=== PATIENT | male | born 1940 | race Caucasian/White ===

== ENCOUNTER 2025-05-10 18:26 | Inpatient (IN) | payer OTHER, SELFPAY ==
[2025-05-10] VITALS (8 sets, daily range): BP systolic 106–143; BP diastolic 67–94; BMI 24.7; BMI 21.7
[2025-05-10 14:48] LABS: Hematocrit 44.2 % (39.0-52.0); Hemoglobin 15.1 g/dL (13.0-18.0); Mean Corp Hgb Conc. 34.2 g/dL (33.0-37.0); Mean Corpuscular Volume 92.7 fL (80.0-94.0); Nucleated Red Blood Cells % 0 % (-); Platelet Count 218 10^3/uL (130-400); Red Cell Dist. Width 12.3 % (11.5-14.5)
[2025-05-10 15:11] LABS: AST (SGOT) 24 U/L (17-59); Albumin 4.2 g/dl (3.5-5.0); Alkaline Phosphatase 87 U/L (38-126); Blood Urea Nitrogen 13 mg/dl (9-20); Calcium 9.1 mg/dl (8.4-10.2); Carbon Dioxide 18 mmol/L (22-30); Chloride 111 mmol/L (98-107); Estimated Creatinine Clearance 59 ml/min; Glucose 139 mg/dl (70-99); Potassium 3.8 mmol/L (3.5-5.1); Sodium 141 mmol/L (135-145); Total Protein 7.0 g/dl (6.3-8.2); eGFR > 60.00
--- NOTE | 2025-05-10 15:18 | ED.GENMED ---
History of Present Illness
General
Chief Complaint: Seizure
Source: patient
Exam Limitations: none
Time Seen by Provider: 05/10/25 14:09
History of Present Illness
History of Present Illness:
84yoM with a history of atrial fibrillation, dementia, hypothyroidism presenting via EMS for evaluation after a possible seizure about 2 hours ago. Patient was in the car moving from his condo into his daughter's home. Patient suddenly started to
have generalized shaking and upper extremity flexion. His eyes reportedly rolled back and he was unconscious. He was also incontinent of urine. Episode lasted a few minutes before resolving. He was noted to be postictal on EMS arrival. He
continues to be agitated and seems much more confused than baseline per his daughters. No prior history of seizures in the past. He has been noncompliant with his medications and has not been eating much leading up to the move.
Phy Exam
General Physical Exam
General Presentation: no apparent distress
General Skin: warm and dry
General Habitus: normal and elderly
General Mental: alert
ENT Exam
ENT Exam: normocephalic
Eye Exam
Eye Exam: PERRL
Cardiovascular Exam
Cardiovascular Exam: regular rate/rhythm
Pulmonary Exam
Pulmonary Exam: lungs clear, no respiratory distress, no rales, no crackles, no rhonchi and no wheezing
Neurological Exam
Neurological Exam: alert and other (Answers yes/no to questions but not able to verbalize further. Intermittently follows commands. )
[place] Coma Scale
Eye Opening: Spontaneous
Verbal Response: Confused
Motor Response: Obeys Commands
GCS Total Score: 14
Skin Exam
Skin Exam: normal color and warm/dry
Psychiatric Exam
Psychiatric Exam: agitated
Course
Orders/Labs/Results
Orders:
Orders
05/10/25 14:38
EKG [Electrocardiogram (*1)] Urgent
Reason for Study: Other
Other Reason for Exam: seizure
EKG- Treatment ONCE
05/10/25 14:40
Complete Blood Count/With Diff Urgent
Comprehensive Metabolic Panel Urgent
Creatine Phosphokinase Urgent
Comment: ADD ON
NT-proBNP Urgent
05/10/25 15:16
CT Head W/o Iv Contrast Stat
Comment:
Reason For Exam: new onset seizure
Cardiac Monitoring- Treatment ONCE
0.9% Sodium Chloride 500 ml [Nss] 500 ml IV BOLUS
05/10/25 17:41
Urinalysis Reflex To Culture Urgent
Date Specimen was Collected: 05/10/25
Time Specimen was Collected: 17:40
Urine Microscopic Reflex Cult Urgent
05/10/25 18:17
Admit/Transfer Patient As Directed
Co-Sign Provider:
Level of Care: Inpatient admission
Assign to:: Telemetry
Physician / Group: meredith robles
Diagnosis: seizure
Reason for Telemetry: Arrhythmia
Date to Stop Telemetry: 05/13/25
Time to Stop Telemetry: 11:00
Reason for Hospitalization: seizure
Expected length of stay greater than two midnights?: Yes
ELOS- Estimated Length of Stay in days: 3
I certify the patient meets the requirements for IP care: Yes
PRN Pain Medication Management As Directed
May give lesser potent ordered pain med per pt: Yes
preference::
Protocol:: Medication orders for pain may be administered in a
manner that supports deferring to patient preference
when the pt is:
- Requesting an ordered lesser potent pain medication.
Least to most potent pain medications are defined
as: acetaminophen < NSAID < tramadol < opioids
(morphine, oxycodone, hydromorphone).
- Requesting a lesser dose of the same medication IF
ORDERED.
- Requesting a less intrusive route of administration
if both routes are prescribed by the provider (PO <
IV).
05/10/25 18:18
Code Status As Directed
Resuscitation Status: Full Code
05/10/25 18:20
NEUROLOGY CONSULT Routine
Consulting Provider: Everett Fregoso
Was physician already notified: Yes
05/13/25 11:00
DC Protocol for Telemetry ONCE
Abnormal Lab Results
05/10/25 05/10/25
14:40 17:41
MCH 31.7 H pg
(27.0-31.0)
Abs Immat Gran (auto) 0.4 H 10^3/uL
(0-0.05)
Absolute Monos (auto) 0.8 H 10^3/uL
(0.1-0.6)
Immature Gran % 4.2 H %
(0-0.5)
Chloride 111 H mmol/L
(98-107)
Carbon Dioxide 18 L mmol/L
(22-30)
Glucose 139 H mg/dl
(70-99)
Creatine Kinase 54 L U/L
(55-170)
Ur Occult Blood Reflex 2+ A
(Negative)
Urine RBC 3-6 A /HPF
(0-2)
05/10/25 14:40
05/10/25 14:40
Vital Signs
Initial and Last Documented VS:
Initial Vital Signs
BP
143/91
05/10/25 14:11
Last Documented Vital Signs
Temp Pulse Resp BP Pulse Ox
98.0 F 84 20 140/88 94
05/10/25 14:20 05/10/25 18:48 05/10/25 18:48 05/10/25 17:52 05/10/25 17:55
MDM/Problems Addressed
Differential Diagnosis Includes:
84yoM here after a possible seizure episode. Was unconscious with generalized shaking and urinary incontinence. No hx of seizures. HR 109 on arrival. He is agitated on exam and appears confused. He intermittently follows commands. Differential
diagnosis includes: seizure, convulsive syncope, toxic metabolic encephalopathy
Initial ED plan: Check CBC, CMP, EKG, UA, and CT head. IV fluid bolus.
*Pulse Oximetry
SaO2: 95
Oxygen Mode of Delivery: Room air
Patient hypoxic: no (95%)
*EKG
Interpreted by ED Provider?: Yes
EKG Intrepretation Date: 05/10/25
Heart Rate: 87
Rate: normal
Rhythm: a-fib
[place]: normal axis
Interval: normal interval
QRS Pattern: low voltage
Ischemia: no ischemia
*Critical Care Note
Total Time (30-74mins, 75-104mins- exclusive of procedures): Not Applicable
Update Note
Update Note:
Labs reveal a metabolic acidosis with a bicarb of 18 which is likely related to seizure episode. Remainder of labs unremarkable. CT head negative for acute findings. Patient admitted for further evaluation and management.
ED Attending Note
-
Portions of this chart may have been created with voice recognition software.� Occasional wrong word or��sound alike� substitutions may have occurred due to the inherent limitations of voice recognition software.
Discharge Plan
Departure
Patient Disposition: Admit
Date of Disposition: 05/10/25
Time of Disposition: 17:57
Presentation/result/management discussed w/ accepting MD/DO: Hospitalist
Discharge Problem:
Seizure-like activity, Altered mental status
Interventions
Interventions:
*Risk Screen - Suicide Last Done: 05/10/25 14:20
*General Assessment Last Done: 05/10/25 14:20
*Neglect/Abuse Screening Last Done: 05/10/25 14:20
*ED COVID-19 Vaccine History Last Done: 05/10/25 14:20
ED- Cardiac Assessment Last Done: 05/10/25 16:30
ED- Neurological Assessment Last Done: 05/10/25 16:30
ED- Pulmonary Assessment Last Done: 05/10/25 16:30
[2025-05-10 15:22] LABS: ALT (SGPT) < 10 U/L (0-50)
[2025-05-10] MEDS: NSS 500 IV (16:17)
--- NOTE | 2025-05-10 18:01 | HPS.HSE ---
Addendum entered and electronically signed by EDUARD Mercer 05/20/25 12:15:
Allergies
Allergy/AdvReac Type Severity Reaction Status Date / Time
No Known Allergies Allergy Verified 05/10/25 16:07
Home Medications
levothyroxine 50 mcg tablet 50 mcg PO DAILY 05/10/25
levetiracetam 500 mg tablet (Keppra) 500 mg PO BID #60 tabs 05/15/25
metoprolol tartrate 25 mg tablet 25 mg PO BID #60 tabs 05/15/25
Original Note:
Family Physician
-
Family Physician: EDUARD Yates
Chief Complaint
-
possible seizure
History of Present Illness
84yoM with a history of atrial fibrillation, dementia, hypothyroidism presenting via EMS for evaluation after a possible seizure about 2 hours ago. Patient was in the car moving from his condo into his daughter's home. Patient suddenly started to
have generalized shaking and upper extremity flexion. His eyes reportedly rolled back and he was unconscious. He was also incontinent of urine. Episode lasted a few minutes before resolving. He was noted to be postictal on EMS arrival. He
continues to be agitated and seems much more confused than baseline per his daughters. No prior history of seizures in the past. He has been noncompliant with his medications and has not been eating much leading up to the move. ROS limited as
patient confused and does not make sense.
admitting for further management.
Medical History
Past Medical History
Past Medical History: Reports Other
Additional Past Medical History:
Hypothyroidism
Hypertension
A-fib
Dyslipidemia
Right leg cellulitis
Bladder outlet obstruction
Varicella
Hemorrhoids
Gastritis
'Open-angle glaucoma
Diverticulosis
Dementia
Osteopenia
Past Surgical History: Reports None
Social History
Tobacco: Non-smoker
Alcohol: None
Drug: None
Personal: Single
Living: Alone
Family History
Family History: Not pertinent
Allergies / Home Medications
Allergies reflects when Allergies were last updated in [facility].
Home Medications with original date entered in [facility]
Allergy/Medication List:
Allergies
Allergy/AdvReac Type Severity Reaction Status Date / Time
No Known Allergies Allergy Verified 05/10/25 16:07
Review of Systems
-
Unable to obtain full review of systems at this time due to: Acuity
Physical Exam
Vital Signs
Vital Signs
Temp Pulse Resp BP Pulse Ox
98.0 F 87 18 143/91 95
05/10/25 14:20 05/10/25 14:20 05/10/25 14:20 05/10/25 14:20 05/10/25 15:18
Physical Exam
General: Well Developed, Well Nourished and No Apparent Distress
HEENT: NormoCephalic, Moist mucous membranes and Atraumatic
Respiratory: Clear
Cardiac: S1/S2 and Regular Rhythm; No Murmur or Rub
GI: Soft, Non Tender, Non Distended and Normal Bowel Sounds; No Organomegaly
Rectal: Deferred by Provider
Musculoskeletal: No Clubbing, No Cyanosis and No Edema
Skin: No Rash
Neuro: AO x 3 and Nonfocal/grossly intact
Psych: Calm
Laboratory Results
-
05/10/25 14:40
05/10/25 14:40
Laboratory Results
Total Bilirubin 0.8 mg/dl (0.2-1.3) 05/10/25 14:40
AST 24 U/L (17-59) 05/10/25 14:40
ALT < 10 U/L (0-50) 05/10/25 14:40
Alkaline Phosphatase 87 U/L (38-126) 05/10/25 14:40
Data Reviewed
-
CT Scan: Report Reviewed by me
Lab Data: Labs Reviewed by me
Impression/Plan
-
#suspect seizure
#metabolic encephalopathy secondary to seizure
-UA pending
-EEG ordererd
-neurology consulted
-CT head No acute intracranial abnormality noted. No acute intracranial hemorrhage. No mass effect. Small chronic cerebellar infarcts.Central greater than cortical atrophy versus normal pressure hydrocephalus; recommend clinical correlation.
#metabolic acidosis likely dehydration
-normal saline in ER
-BMP in am
# Proximal A-fib
- With A-fib with controlled heart rate
- Continue Xarelto and flecainide
# Hypothyroidism
- Levothyroxine continue
# Hyperlipidemia
- For continued
# DVT prophylaxis
- On Xarelto
# CODE STATUS
- Full code
[2025-05-10 18:11] LABS: Urine Character Clear (Clear)
[2025-05-10 18:19] LABS: Urine Squamous Cell 0-2 /LPF (Few)
[2025-05-10 18:20] LABS: Urine White Cell 0-2 /HPF (0-5)
--- NOTE | 2025-05-10 18:46 | W.PN.UPDATE ---
Update Note
Progress Note Update
I could not get any information from the patient has dementia and presumed post ictal
Information gathered by chart review and speaking with the ER staff.
This note serves as an addendum to the H&P by tiller man KUNAL�
Cheryl DIEHL�
HPI
84M with dementia , HX Prx AF, hypothyroidism seen at ER for questionable Sz:
- for evaluation after a possible seizure about 2 hours ago
- was in the car moving from his condo into his daughter's home
- suddenly started to have generalized shaking and upper extremity flexion
- eyes reportedly rolled back and he was unconscious
- incontinent of urine.
- Episode lasted a few minutes before resolving.
- noted to be postictal on EMS arrival- continues to be agitated and seems much more confused than baseline per his daughters.
No prior history of seizures in the past.
Noncompliant with his medications and has not been eating much leading up to the move.
ROS limited as patient confused and does not make sense.
Vital Signs
Temp Pulse Resp BP Pulse Ox
98.0 F 84 20 140/88 94
05/10/25 14:20 05/10/25 18:00 05/10/25 18:00 05/10/25 17:52 05/10/25 17:55
PE
Gen: awake but confused at restless
HEENT: NAD
Neck: supple
Lungs: CTA
Cor: RRR S1 S2
Abdomen:�soft
HEAD WAITER/WAITRESS BANQUET: confused , limited exam
MS: no edema
Psych:
Relevant Data
05/10/25
14:40
Chloride 111 H
Carbon Dioxide 18 L
Creatinine 0.9
eGFR > 60.00
Tlt-X-Kencohdbvhe Pept 1120
EKG
ATRIAL FIBRILLATION
LOW VOLTAGE QRS
ABNORMAL ECG
NO PREVIOUS ECGS AVAILABLE
CT Head W/o Iv Contrast
- No acute intracranial abnormality noted. No acute intracranial hemorrhage. No mass effect. Small chronic cerebellar infarcts.
- Central greater than cortical atrophy versus normal pressure hydrocephalus; recommend clinical correlation.
NO prior hospitalist admission:
ASSESSMENT & PLAN
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
Associated metabolic acidosis due to anaerobic metabolism during Sz episode
NEG HCT
- Empiric IV Keppra 500mg now and q12h
- EEG in AM
- Trend BMP
- Neurology consulted
Post ictal agitation
Underlying Dementia
Chr stuttering speech
- Observe wit initiation of Keppra
- Fall precaution
Proximal AF
- ASSISTANT HALL DIRECTOR Xarelto and flecainide
Hypothyroidism
- ASSISTANT HALL DIRECTOR LT4
Hyperlipidemia
- c/w Simvastatin
DVT Px: ASSISTANT HALL DIRECTOR Xartelto
DNR per daughter at bed side
IP TLM
--- NOTE | 2025-05-10 19:10 | PHANOTE ---
Addendum entered by Jen Lopez 05/10/25 19:28:
med rec tech: family got pictures of drug packaging, med list confirmed
Original Note:
med rec tech: family thinks he has xarelto, flecainide, levothyroxine and either simvastatin or atorvastatin at home, but they do not know the doses. Pt has not been taking meds for some time, family stops by and fills a pill box for him every
week, but he has not been taking them.
[2025-05-10] MEDS: KEPPRA 500 MG IV (22:20)
[2025-05-10] MEDS: TAMBOCOR PO (22:45)
--- NOTE | 2025-05-10 22:50 | PTCARENOTE ---
Pt arrived from ED to 3 [address] via stretcher. Pt pulled over into bed [id number] with staff assistance. Oriented to room, call davenport in reach. Daughters at bedside to assist with admission. Pt unable to follow simple commands, confused, restless and humming.
Has prior hx dementia. Unable to take PO tambocor at this time. SNAG GRINDER notified. Will continue to monitor pt.
[2025-05-11 03:24] VITALS: BP 156/83
[2025-05-11] MEDS: SYNTHROID PO (05:21)
[2025-05-11 07:30] VITALS: BP 138/94
[2025-05-11 07:42] LABS: Blood Urea Nitrogen 14 mg/dl (9-20); Calcium 8.5 mg/dl (8.4-10.2); Carbon Dioxide 23 mmol/L (22-30); Chloride 111 mmol/L (98-107); Estimated Creatinine Clearance 59 ml/min; Glucose 113 mg/dl (70-99); Potassium 3.6 mmol/L (3.5-5.1); Sodium 142 mmol/L (135-145); eGFR > 60.00
[2025-05-11] MEDS: LIPITOR 10 MG PO (08:28)
[2025-05-11] MEDS: KEPPRA 500 MG IV ×2 (08:28→20:25)
[2025-05-11] MEDS: XARELTO 20 MG PO (08:28)
[2025-05-11] MEDS: TAMBOCOR 50 MG PO ×2 (08:30→22:20)
[2025-05-11] MEDS: FLUSH (NSS) 2 FLUSH IV (08:31)
[2025-05-11 11:30] VITALS: BP 138/91
--- NOTE | 2025-05-11 12:21 | W.PN.HOSP.TC ---
Today's Communication/Plan
-
TSH with reflex, b12, RPR
Neuro consulted
EEG
Speech eval
Assessment / Plan
Assessment / Plan
Physical Exam
General: Well Developed, Well Nourished and No Apparent Distress
HEENT: NormoCephalic, Moist mucous membranes and Atraumatic
Respiratory: Clear
Cardiac: S1/S2 and Regular Rhythm; No Murmur or Rub
GI: Soft, Non Tender, Non Distended and Normal Bowel Sounds; No Organomegaly
Rectal: Deferred by Provider
Musculoskeletal: No Clubbing, No Cyanosis and No Edema
Skin: No Rash
Neuro: AO x 3 and Nonfocal/grossly intact
Psych: Calm
#suspected seizure
-UA negative
-EEG Ordered
-neurology consulted
-CT head No acute intracranial abnormality noted. No acute intracranial hemorrhage. No mass effect. Small chronic cerebellar infarcts.Central greater than cortical atrophy versus normal pressure hydrocephalus; recommend clinical correlation.
Acute on Chronic Encephalopathy, suspected worsening dementia
-benefits from outpatient neurospych outpatient
-possible aspiration - consult ST
-F/u TSH, RPR, B12
-UA negative
# Proximal A-fib
- With A-fib with controlled heart rate
- Continue Xarelto and flecainide
# Hypothyroidism
- Levothyroxine continue
-f/u tsh with reflex
# Hyperlipidemia
- For continued
# DVT prophylaxis
- On Xarelto
# CODE STATUS
- Full code
Anticipated Discharge: 24 - 48 hours
Subjective/Interval History
-
Date of Service: May 11, 2025
No acute events overnight
Objective Data
-
Labs:
Laboratory Results
05/11/25
06:51
Sodium 142
Potassium 3.6
Chloride 111 H
Carbon Dioxide 23
BUN 14
Creatinine 0.9
Glucose 113 H
Calcium 8.5
Vital Signs:
Vital Signs
Temp Pulse Resp BP Pulse Ox
98.7 F 98 18 138/91 96
05/11/25 11:30 05/11/25 11:30 05/11/25 11:30 05/11/25 11:30 05/11/25 11:30
Review of Systems
-
Unable to obtain full review of systems at this time due to: Acuity
History Source: Patient
Data Reviewed
-
CT Scan: Report Reviewed by me
Labs: Labs Reviewed by me
--- NOTE | 2025-05-11 15:21 | PTOTSP ---
Speech therapy
Presentation: Patient was disoriented and confused. Patient was cooperative but his confusion was likely a barrier to following commands. Patient communicated short utterances with CAP BLOCKER and daughters. Per daughters, patient's current communication is
limited compared to baseline.
Baseline swallowing function: Per conversation with daughters, patient was previously living alone (anticipating to transition to daughter's home/ care) and does not typically eat 'meals'. Patient is known to eat snacks, candy, and drink protein
shakes for PO. This was a large contributor as to why the family was planning to move the patient into the daughter's home.
Swallowing Function: Patient was observed with several bites of puree and sips of thin liquids (straw) in which patient demonstrated oral holding with all presentations and inconsistent audible swallowing. Patient did not exhibit any overt clinical
s/sx of aspiration. However, patient's confusion and oral holding could contribute to aspiration risk if left to self-feed. Of note, no pocketing noted.
Swallowing complaints: Per RN, patient demonstrating oral holding and coughing with meal tray this AM (reg/thin) and coughing with medications (whole with thins). Recommend trial of medications whole in puree to see if this is a better option for
medication administration while patient remains confused.
Given the above, recommend IDDSI 4 puree solids with thin liquids and SUPERVISION/ ASSISTANCE with all PO.
Recommendations:
1) Trial of IDDSI 4; puree and thin liquids
2) Aspiration precautions (especially small, single bites and sips)
3) FULL assistance and supervision with PO
4) Trial of medications administered whole in puree
5) PO only when alert
Plan: CAP BLOCKER will continue to follow for diet advancement; pending hospitalization.
[2025-05-11 15:43] LABS: Folate 4.5 ng/ml (2.76-20); Vitamin B12 < 159 pg/ml (239-931)
[2025-05-11 16:00] VITALS: BP 143/89
--- NOTE | 2025-05-11 16:31 | CON.NEURO ---
Neuro Assessment/Plan
Assessment
84 year old man first time seizure, check MRI brain and EEG for risk stratification
no rx for now
he does not drive
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
afib on xarelto
Consultation
Order
Date of Consultation: 05/11/25
Requesting Provider: Bia
Reason for Consult: seizure
Subjective/Objective
Subjective Data
Date of Service: May 11, 2025
from h&p:
84yoM with a history of atrial fibrillation, dementia, hypothyroidism presenting via EMS for evaluation after a possible seizure about 2 hours ago. Patient was in the car moving from his condo into his daughter's home. Patient suddenly started to
have generalized shaking and upper extremity flexion. His eyes reportedly rolled back and he was unconscious. He was also incontinent of urine. Episode lasted a few minutes before resolving. He was noted to be postictal on EMS arrival. He
continues to be agitated and seems much more confused than baseline per his daughters. No prior history of seizures in the past. He has been noncompliant with his medications and has not been eating much leading up to the move. ROS limited as
patient confused and does not make sense.
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
delusions.
Objective Data
Vital Signs
Temp Pulse Resp BP Pulse Ox
37.1 C 98 18 138/91 96
05/11/25 11:30 05/11/25 11:30 05/11/25 11:30 05/11/25 11:30 05/11/25 11:30
Lab Results
05/10/25 14:40
05/11/25 06:51
Sodium 142 mmol/L (135-145) 05/11/25 06:51
Potassium 3.6 mmol/L (3.5-5.1) 05/11/25 06:51
BUN 14 mg/dl (9-20) 05/11/25 06:51
Glucose 113 mg/dl (70-99) H 05/11/25 06:51
Calcium 8.5 mg/dl (8.4-10.2) 05/11/25 06:51
Uwj-Z-Nbumeptprwx Pept 1120 pg/ml 05/10/25 14:40
Vitamin B12 < 159 pg/ml (239-931) L 05/11/25 06:51
Patient Allergies
No Known Allergies Allergy (Verified 05/10/25 16:07)
Physical Exam
-
AAOx0, difficulty following simple commands, perseverative, slow to process
speech soft
no cogwheel rigidity
Medications
-
Active Medications
Generic Name Dose Route Start Last Admin
Trade Name Freq PRN Reason Stop Dose Admin
Acetaminophen 650 mg 05/10/25 21:47
Acetaminophen 325 Mg Tablet PO 06/07/25 21:46
Q4HPRN PRN
mild pain/GUARDADO/temp> 100.4F
Atorvastatin Calcium 10 mg 05/11/25 08:00 05/11/25 08:28
Atorvastatin (Lipitor) 10 Mg Tablet PO 06/08/25 07:59 10 mg
DAILY JEOVANY Administration
Bisacodyl 10 mg 05/10/25 21:47
Bisacodyl 10 Mg Rectal Suppository RECTAL 06/07/25 21:46
[id number] PRN
constipation
Flecainide Acetate 50 mg 05/10/25 21:47 05/11/25 08:30
Flecainide 50 Mg Tablet PO 06/07/25 21:46 50 mg
Q12H JEOVANY Administration
Levetiracetam 500 mg 05/11/25 08:00 05/11/25 08:28
Levetiracetam (100 Mg/Ml) 500 Mg/5 Ml Vial IV 06/08/25 07:59 500 mg
Q12 JEOVANY Administration
Levothyroxine Sodium 50 mcg 05/11/25 06:00 05/11/25 05:21
Levothyroxine 50 Mcg Tablet PO 06/08/25 05:59 Not Given
0600 JEOVANY
Polyethylene Glycol 17 grams 05/10/25 21:47
Polyethylene Glycol Powder 17 Grams Packet PO 06/07/25 21:46
DAILYPRN PRN
constipation
Rivaroxaban 20 mg 05/11/25 08:00 05/11/25 08:28
Rivaroxaban 20 Mg Tablet PO 06/08/25 07:59 20 mg
DAILY JEOVANY Administration
Senna/Docusate Sodium 1 tablet 05/10/25 21:47
Docusate W/Senna (Sylvie-Colace) Tablet PO 06/07/25 21:46
BIDPRN PRN
constipation
Sodium Chloride 0 flush 05/10/25 22:00 05/11/25 08:31
Sodium Chloride 0.9% (Flush) Syringe IV 06/07/25 21:59 2 flush
PER PROTOCOL JEOVANY Administration
Home Medications
�Medication �Instructions �Recorded
atorvastatin 10 mg tablet 10 mg PO DAILY 05/10/25
felodipine 5 mg tablet,extended 5 mg PO DAILY 05/10/25
release 24 hr
levothyroxine 50 mcg tablet 50 mcg PO DAILY 05/10/25
rivaroxaban 20 mg tablet (Xarelto) 20 mg PO DAILY 05/10/25
[2025-05-11 20:23] VITALS: BP 159/96
[2025-05-11 23:35] VITALS: BP 148/92
[2025-05-12] VITALS (8 sets, daily range): BP systolic 141–162; BP diastolic 96–118; PULSE 108; BMI 21.7
[2025-05-12] MEDS: SYNTHROID 50 MCG PO (06:19)
[2025-05-12] MEDS: LIPITOR 10 MG PO (07:30)
[2025-05-12] MEDS: KEPPRA 500 MG IV ×2 (07:31→23:26)
[2025-05-12] MEDS: XARELTO 20 MG PO (07:31)
--- NOTE | 2025-05-12 08:26 | W.PN.NEURO.1 ---
Today's Communication / Plan
-
Agree with initiation of levetiracetam, continue at currently prescribed 500 mg twice a day. Watch for side effects
Profoundly low B12 level, start replacement
Continue rivaroxaban for atrial fibrillation prophylaxis against stroke
Neuro Assessment/Plan
Assessment
84 year old man first time seizure
2 years of rapidly progressive dementia constellation of symptoms most consistent with Lewy body dementia. The patient's very low B12 level may also be playing a role
Plan
Agree with initiation of levetiracetam, continue at currently prescribed 500 mg twice a day. Watch for side effects
Profoundly low B12 level, start replacement
Continue rivaroxaban for atrial fibrillation prophylaxis against stroke
Will follow MRI of brain results
Will follow EEG results
Will follow as needed.
Subjective/Objective
Subjective Data
Date of Service: May 12, 2025
Objective Data
Vital Signs
Temp Pulse Resp BP Pulse Ox
36.9 C 117 16 155/111 91
05/12/25 03:29 05/12/25 03:29 05/12/25 03:29 05/12/25 03:29 05/12/25 03:29
Sodium 142 mmol/L (135-145) 05/11/25 06:51
Potassium 3.6 mmol/L (3.5-5.1) 05/11/25 06:51
BUN 14 mg/dl (9-20) 05/11/25 06:51
Glucose 113 mg/dl (70-99) H 05/11/25 06:51
Calcium 8.5 mg/dl (8.4-10.2) 05/11/25 06:51
Lty-V-Xjkihbvdkvs Pept 1120 pg/ml 05/10/25 14:40
Vitamin B12 < 159 pg/ml (239-931) L 05/11/25 06:51
Patient Allergies
No Known Allergies Allergy (Verified 05/10/25 16:07)
Data Reviewed
-
Labs: Ordered and Report Reviewed
Reviewed with: Physician and Nurse Practioner
Old Records: Summarized
[2025-05-12 08:28] LABS: Hematocrit 46.6 % (39.0-52.0); Hemoglobin 16.3 g/dL (13.0-18.0); Mean Corp Hgb Conc. 35.0 g/dL (33.0-37.0); Mean Corpuscular Volume 90.1 fL (80.0-94.0); Platelet Count 201 10^3/uL (130-400); Red Cell Dist. Width 12.3 % (11.5-14.5)
[2025-05-12 08:43] LABS: Blood Urea Nitrogen 15 mg/dl (9-20); Calcium 8.7 mg/dl (8.4-10.2); Carbon Dioxide 23 mmol/L (22-30); Chloride 109 mmol/L (98-107); Estimated Creatinine Clearance 59 ml/min; Glucose 130 mg/dl (70-99); Potassium 3.8 mmol/L (3.5-5.1); Sodium 141 mmol/L (135-145); eGFR > 60.00
[2025-05-12] MEDS: VITAMIN B-12 1000 MCG PO (09:10)
[2025-05-12] MEDS: TAMBOCOR 50 MG PO (09:10)
--- NOTE | 2025-05-12 10:16 | W.PN.HOSP.TC ---
Addendum entered and electronically signed by Nathalia Reddy MD 05/12/25 16:03:
addendum
Pt seems to have tachycardia
Medication on admission from home still did not show flecainide but he was started on it
Not sure what exactly antiarrhythmic. He seems to be in A-fib.
Will repeat another EKG. Will start the patient on IV metoprolol since the nurse reported possible aspiration event. Order chest x ray
Reconsult speech
Will consult cardiology, he seems to follow-up with cardiology in the outpatient setting
Left a message to the daughter Corina PRATHER, will try again.
Called other daughter Jen, no answer.
End
Original Note:
Today's Communication/Plan
-
f/w neurology recommendations
Assessment / Plan
Assessment / Plan
Physical Exam
General: No Apparent Distress
HEENT: Normocephalic, Moist mucous membranes and Atraumatic
Respiratory: Clear, no wheezes.
Cardiac: S1/S2, tachycardia.
GI: Soft, Non Tender, Non Distended and Normal Bowel Sounds;
Rectal: Deferred by Provider
Musculoskeletal: No Clubbing, No Cyanosis and No Edema
Skin: No Rash
Neuro: Awake, confused, getting EEG
Psych: Calm
#suspected seizure
-UA negative
-EEG Ordered
-neurology consulted. Started on Keppra
-CT head No acute intracranial abnormality noted. No acute intracranial hemorrhage. No mass effect. Small chronic cerebellar infarcts.Central greater than cortical atrophy versus normal pressure hydrocephalus; recommend clinical correlation.
# Vitamin B12 deficiency,
Acute on Chronic Encephalopathy, suspected worsening dementia
-benefits from outpatient neurospych outpatient
-possible aspiration - consult ST
-F/u TSH, RPR, B12
-UA negative
# Proximal A-fib
- With A-fib with controlled heart rate
- Continue Xarelto and flecainide
# Hypothyroidism
- Levothyroxine continue
-f/u tsh with reflex
# Hyperlipidemia
- For continued
# DVT prophylaxis
- On Xarelto
# CODE STATUS
- Full code
Total time spent to see the patient, examine the patient, review data and lab result, discuss treatment plan with patient, nursing staff around 55 minutes
Anticipated Discharge: 24 - 48 hours
Subjective/Interval History
-
Date of Service: May 12, 2025
No pain issues
Confused/ forgetful
Objective Data
-
Labs:
Laboratory Results
05/12/25
07:54
WBC 15.4 H
Hgb 16.3
Hct 46.6
Plt Count 201
Sodium 141
Potassium 3.8
Chloride 109 H
Carbon Dioxide 23
BUN 15
Creatinine 0.9
Glucose 130 H
Calcium 8.7
Vital Signs:
Vital Signs
Temp Pulse Resp BP Pulse Ox
98.5 F 103 18 154/112 96
05/12/25 07:30 05/12/25 07:30 05/12/25 07:30 05/12/25 07:30 05/12/25 09:43
I&O
05/11/25 05/12/25 05/13/25
06:59 06:59 06:59
Intake Total 240 / 240
Output Total 125 / 125
Balance 115 / 115
--- NOTE | 2025-05-12 13:32 | EEG.RPT ---
Electroencephalogram Report
Recording
Date of EE05/12/25
Type of EEG: Routine
Report
LESS THAN 1 HOUR EEG REPORT
LESS THAN 1 HOUR EEG INTERPRETATION:
Mildly abnormal study for age based on low amplitude even for age, generalized slowing demonstrated bihemispherically equally
CLINICAL CORRELATION:
Although normative values not been established for a person of this advanced age the patient�s symmetry of the background suggests that this study was suggestive of mild bihemispheric cortical dysfunction. No epileptiform features were demonstrated.
If concerns remain regarding epilepsy, prolonged monitoring may be of assistance.
Clinical correlation is advised.
METHODS:
A 21-channel digital electroencephalogram (EEG) was performed in the Clinical Neurophysiology Laboratory. The 10/20 international system of electrode placement was used with ECG and lateral/vertical eye movements recorded. The [employer] quantitative
EEG analysis system was performed
IMPRESSION(S):
Quality of study
Fair
Background
Low amplitude
Anterior-posterior voltage gradient differentiation: Fair
Theta frequency maximal background demonstrated
Sleep
Drowsiness present
Hyperventilation
Not performed
Photic Stimulation
Failed to activate the record
ECG
Normal rhythm
Abnormal Activity
None
--- NOTE | 2025-05-12 15:22 | CM ---
Addendum entered by Celia Andres 05/12/25 15:31:
PCP: Rayray Baker
Pharmacy: [facility], [address], [place]
Original Note:
Met with patient's daughter Quin
IA completed
Dx: Seizure
PMH: atrial fibrillation, dementia, hypothyroidism
patient was in car in process moving to daughter's home in law suite when he had seizure
He was living alone in a 1 bedroom condo
PLOF: Independent, did not use assistive device
DME: Walker, cane, shower chair
Has had [facility] in past, denies Rehab
PT rec SNF
Options reviewed & list given to daughter's, will let CM know which referrals to place
CM will need to obtain insurance auth once bed secured
PLAN: SNF, pending acceptance/bed availability, when stable, will need ins auth
--- NOTE | 2025-05-12 16:11 | CON.CAR ---
Addendum entered and electronically signed by Raymond Jamison MD 05/12/25 18:04:
I saw and examined the patient.
The EARTH BORING MACHINE OPERATOR's note was reviewed and I agree with the note.
Comment:
84 y/o male (patient of Dr. Urbina) with permanent AFIB on Xarelto, dementia, dyslipidemia, hypothyroidism, and hypertension who came in with possible seizure. Neurology is on the case. We are consulted for AFIB with RVR.
Physical exam: Irregular rate and rhythm, no murmurs, bibasilar crackles, no lower extremity edema
Telemetry: A-fib now with heart rates in the 70s, earlier today 110/120s
For his atrial fibrillation, we will continue IV metoprolol as needed for heart rate greater than 120 bpm while unable to take p.o. Stop flecainide. Resume Xarelto once he can swallow pills. No need for bridging.
Original Note:
Consultation
Consultation Request
Date/Time Consultation Requested: 05/12/25 1555
Date/Time Consultation Performed: 05/12/25 1630
Requesting Provider: Dr. Reddy
Performing Provider: Lilly CHAPA for Dr. Jamison
Reason for Consultation: AFIB
Medical History
-
Chief Complaint: possible seizure
History of Present Illness:
84 y/o male (patient of Dr. Urbina) with permanent AFIB on Xarelto, dementia, dyslipidemia, hypothyroidism, and hypertension who came in with possible seizure. Neurology is on the case. We are consulted for AFIB with RVR. He is in no distress at the
time of my assessment. Family is at bedside (daughter and grand daughter).
Past Medical History
Past Medical History: Arrhythmias, HTN, Hypercholesterolemia and Hypothyroidism
Social History
Tobacco: Non-Smoker
Family History
Family History: Reviewed & Not Pertinent
Allergies / Home Medications
Allergy/AdvReac Type Severity Reaction Status Date / Time
No Known Allergies Allergy Verified 05/10/25 16:07
�Medication �Instructions �Recorded �Confirmed �Type
atorvastatin 10 mg tablet 10 mg PO DAILY 05/10/25 05/10/25 History
felodipine 5 mg tablet,extended 5 mg PO DAILY 05/10/25 05/10/25 History
release 24 hr
levothyroxine 50 mcg tablet 50 mcg PO DAILY 05/10/25 05/10/25 History
rivaroxaban 20 mg tablet (Xarelto) 20 mg PO DAILY 05/10/25 05/10/25 History
Review of Systems
-
Unable to obtain full review of systems at this time due to: Dementia
History Source: Other (chart)
Neurological: Other (seizure activity)
Physical Exam
Vital Signs
Temp Pulse Resp BP Pulse Ox
98.0 F 88 20 146/97 94
05/12/25 11:30 05/12/25 11:30 05/12/25 11:30 05/12/25 11:30 05/12/25 11:30
Lab Results
05/12/25 07:54
05/12/25 07:54
Prs-F-Dznrtrknras Pept 1120 pg/ml 05/10/25 14:40
Physical Exam
General: Well Developed and No Apparent Distress
HEENT: Normocephalic and Anicteric
Respiratory: Other (coarse to bases)
Cardiac: Irregular Rhythm
Neuro: Awake
Psych: Calm
Impression / Plan
-
Suspected seizure:
-neuro is on the case
-on levetiracetam now
-getting EEG and MRI
Possible aspiration event:
-CXR shows evidence for possible PNA- nursing to discuss with primary team
-speech therapy consulted
Permanent AFIB: asymptomatic
-rates mildly elevated in setting of acute illness, metoprolol added by primary team. IV for now, while swallowing is assessed due to concern for aspiration event. This requires intensive monitoring. Of note, patient has permanent AFIB and on last
OP cardiology visit, was not on flecainide. I have stopped this.
-on Xarelto- continue
HTN:
-monitor with addition of BB
HLD:
-on statin
Dementia:
-neuro following
Family in room tells me patient has memory issues and has not been taking his medications. CM involved for SNF at d/c.
Data Reviewed
-
EKG: Tracing Personally Visualized and interpreted (87 BPM AFIB)
CT Scan: Report Reviewed by me (head CT: No acute intracranial abnormality noted. No acute intracranial hemorrhage. No mass effect. Small chronic cerebellar infarcts. Central greater than cortical atrophy versus normal pressure hydrocephalus;
recommend clinical correlation.)
Labs: Labs Reviewed by me
[2025-05-12 16:20] LABS: Vitamin D, 25-OH*** 35.7 ng/mL (30-80)
[2025-05-12] MEDS: D5/0.9% SODIUM CHLORIDE 1000 IV (17:23)
[2025-05-12] MEDS: LOPRESSOR 5 MG IV (17:24)
--- NOTE | 2025-05-12 17:54 | PTCARENOTE ---
Pt coughing w/ pureed diet at lunch. Suctioned mouth. Concerned for aspiration. Dr Reddy notified. Pt's HR 110-120's RR 20's bp elevated. EKG done, A flutter, Cards consulted, at bedside to evaluate. CXR done. Hold all feeds at this time. IVFs
started and 5mg IV Lopresser given.
[2025-05-13] MEDS: D5/0.9% SODIUM CHLORIDE 1000 IV ×3 (01:10→17:37)
[2025-05-13 04:00] VITALS: BP 145/89
[2025-05-13] MEDS: SYNTHROID PO (05:23)
[2025-05-13 06:19] LABS: Hematocrit 46.5 % (39.0-52.0); Hemoglobin 16.2 g/dL (13.0-18.0); Mean Corp Hgb Conc. 34.8 g/dL (33.0-37.0); Mean Corpuscular Volume 91.2 fL (80.0-94.0); Platelet Count 192 10^3/uL (130-400); Red Cell Dist. Width 12.3 % (11.5-14.5)
[2025-05-13 06:45] LABS: Blood Urea Nitrogen 13 mg/dl (9-20); Calcium 8.5 mg/dl (8.4-10.2); Carbon Dioxide 22 mmol/L (22-30); Chloride 110 mmol/L (98-107); Estimated Creatinine Clearance 76 ml/min; Glucose 138 mg/dl (70-99); Potassium 3.2 mmol/L (3.5-5.1); Sodium 141 mmol/L (135-145); eGFR > 60.00
[2025-05-13 07:43] VITALS: BP 142/89
--- NOTE | 2025-05-13 08:58 | W.PN.NEURO.1 ---
Today's Communication / Plan
-
Agree with hospice evaluation
Agree with initiation of levetiracetam, currently IV, can change to liquid p.o. formulation
Profoundly low B12 level, started replacement
Continue rivaroxaban for atrial fibrillation prophylaxis against stroke if able to take by mouth
Neuro Assessment/Plan
Assessment
84 year old man first time seizure
2 years of rapidly progressive dementia constellation of symptoms most consistent with Lewy body dementia. The patient's very low B12 level may also be playing a role
Plan
Agree with hospice evaluation
Agree with initiation of levetiracetam, currently IV, can change to liquid p.o. formulation
Profoundly low B12 level, started replacement
Continue rivaroxaban for atrial fibrillation prophylaxis against stroke if able to take by mouth
Will follow as needed.
Subjective/Objective
Subjective Data
Date of Service: May 13, 2025
Patient unable to provide own information
Objective Data
Vital Signs
Temp Pulse Resp BP Pulse Ox
37.1 C 85 21 142/89 95
05/13/25 07:43 05/13/25 07:43 05/13/25 07:43 05/13/25 07:43 05/13/25 07:43
Lab Results
05/13/25 05:38
05/13/25 05:38
Sodium 141 mmol/L (135-145) 05/13/25 05:38
Potassium 3.2 mmol/L (3.5-5.1) L 05/13/25 05:38
BUN 13 mg/dl (9-20) 05/13/25 05:38
Glucose 138 mg/dl (70-99) H 05/13/25 05:38
Calcium 8.5 mg/dl (8.4-10.2) 05/13/25 05:38
Wzr-G-Mscmxzedxup Pept 1120 pg/ml 05/10/25 14:40
Vitamin B12 < 159 pg/ml (239-931) L 05/11/25 06:51
Patient Allergies
No Known Allergies Allergy (Verified 05/10/25 16:07)
Review of Systems
-
Unable to obtain full review of systems at this time due to: Dementia
History Source: Patient
All other systems: Reviewed and negative
Physical Exam
-
General: No Apparent Distress and Appears Stated Age
Eyes: Round OU, [place] Conjunctivae and No Ptosis
HEENT: Anicteric and Moist Mucous Membranes
Neck: Full Range of Motion
Respiratory: No Dyspnea
Cardiac: No JVD
GI: Non-distended
Skin: Unremarkable
Extremities: No Clubbing, No Cyanosis and No Edema
Psych: Negative Intact Judgement/Insight
Extended Neurological Exam
Mood & Affect: Affect Unremarkable
Attention Span & Concentration: Awake, Alert, Unable to Perform 2 Step Request and Other (Does not perform single step requests); Negative Interactive (Intermittently interactive and at times refusing examiners requests)
Memory: Able to Recall (Own name), Reduced (For recall of month and year as well as location) and Unable to Recall Personal History
Tremor: Hand Tremor Absent and Head Tremor Absent
Involuntary Movement: None
Speech: Quality Unremarkable and Moderately Reduced Output
Cranial Nerve II: Left Eye: Pupillary Size Unremarkable and Visual Lauren Grossly Intact
Cranial Nerve II: Right Eye: Pupillary Size Unremarkable and Visual Lauren Grossly Intact
Cranial Nerves III, IV, : Extraocular Movement: Grossly Intact
Cranial Nerve V: Facial Sensation: Unable to Assess
Cranial Nerve VII: Facial Symmetry: Normal Facial Symmetry
Cranial Nerve VIII: Hearing: Unremarkable Hearing to Normal Conversational Volume
Cranial Nerves IX, X: Palate Movement: Unable to Assess
Cranial Nerve XI: Shoulder Shrug: Unable to Assess
Cranial Nerve XII: Tongue Protusion: Unable to Assess
Muscle Strength, Overall: Spontaneously Moves (All extremities)
Muscle Bulk & Tone: Bulk Unremarkable and Tone Unremarkable
Pronator Drift: Unable to Assess
Cold Sensation: Unable to Assess
Vibration Sensation: Unable to Assess
Touch Sensation: Unremarkable
Coordination: Reaches for Objects without Difficulty
Gait & Station: Unable to Assess
Data Reviewed
-
MRI Head: Report Reviewed and Image Reviewed
Labs: Report Reviewed
Reviewed with: Physician and Family
Old Records: Summarized
[2025-05-13] MEDS: CYANOCOBALAMIN 1000 MCG IM (09:33)
[2025-05-13] MEDS: KEPPRA 500 MG IV ×2 (09:33→20:44)
[2025-05-13] MEDS: XARELTO PO (09:34)
--- NOTE | 2025-05-13 10:09 | W.PN.HOSP.TC ---
Today's Communication/Plan
-
# Goals of care discussed
Patient has advanced dementia, likely frontotemporal lobe dementia.
I discussed with CRESCENCIO Arriaga. Patient CODE STATUS changed to DNR/DNI
Goal of care changed to comfort with goal to be able to discharge patient to home on oral medication and comfort feeding with hospice service
Consult cyanide case hardener/hospice for further coordination
dc planning
Assessment / Plan
Assessment / Plan
Physical Exam
General: No Apparent Distress
HEENT: Normocephalic, Moist mucous membranes and Atraumatic
Respiratory: Clear, no wheezes.
Cardiac: S1/S2, tachycardia.
GI: Soft, Non Tender, Non Distended and Normal Bowel Sounds;
Rectal: Deferred by Provider
Musculoskeletal: No Clubbing, No Cyanosis and No Edema
Skin: No Rash
Neuro: Awake, confused, getting EEG
Psych: Calm
# Goals of care discussed
Patient has advanced dementia, likely frontotemporal lobe dementia. Discussed with neurology. Continue with antiseizure medication.
I discussed with CRESCENCIO Arriaga. Patient CODE STATUS changed to DNR/DNI
Goal of care changed to comfort with goal to be able to discharge patient to home on oral medication and comfort feeding with hospice service
Consult cyanide case hardener/hospice for further coordination
#suspected seizure
-UA negative
-EEG Ordered
-neurology consulted. Started on Keppra
-CT head No acute intracranial abnormality noted. No acute intracranial hemorrhage. No mass effect. Small chronic cerebellar infarcts.Central greater than cortical atrophy versus normal pressure hydrocephalus; recommend clinical correlation.
MRI brain reviewed with neurology, likely advanced frontotemporal dementia
# Vitamin B12 deficiency,
IM Vitamin B12.
# Proximal A-fib
- With A-fib with controlled heart rate
- Continue Xarelto
Stopped flecainide
started on low dose BB
# Hypothyroidism
- Levothyroxine continue
-f/u tsh with reflex
# Hyperlipidemia
Stopped statin with comfort goal.
# DVT prophylaxis
# CODE STATUS
DNR
Total time spent to see the patient, examine the patient, review data and lab result, discuss treatment plan with patient, nursing staff around 55 minutes
Anticipated Discharge: Within 24 hours
Subjective/Interval History
-
Date of Service: May 13, 2025
He denies pain or discomfort
Objective Data
-
Labs:
Laboratory Results
05/13/25
05:38
WBC 14.2 H
Hgb 16.2
Hct 46.5
Plt Count 192
Sodium 141
Potassium 3.2 L
Chloride 110 H
Carbon Dioxide 22
BUN 13
Creatinine 0.7
Glucose 138 H
Calcium 8.5
Vital Signs:
Vital Signs
Temp Pulse Resp BP Pulse Ox
98.7 F 85 21 142/89 95
05/13/25 07:43 05/13/25 07:43 05/13/25 07:43 05/13/25 07:43 05/13/25 07:43
I&O
05/12/25 05/13/25 05/14/25
06:59 06:59 06:59
Intake Total 240 / 240
Output Total 125 / 125
Balance 115 / 115
--- NOTE | 2025-05-13 10:50 | W.PN.CD ---
Today's Communication / Plan
-
PRN BB for elevated rates
Pt is NPO
Review neuro note when available
Progressive dementia may make comfort care/hospice care a very appropriate next setp
Impression / Plan
-
Suspected seizure, now on med, some interaction with Xarelto but will continue (currently NPO)
Possible aspiration event, per hospitalist
Permanent AFIB: asymptomatic, on Xarelto. Rates as outpatient has not required rate control meds. Rates up from acute medical illness. PRN BB seems reasonable.
HTN, has been on felodipine as outpatient, monitor while NPO
HLD, on statin
Dementia, chronic/progressive, neuro now involve
- Family in room tells and has reported that camila has not been taking his medications. CM involved for SNF at d/c.
Subjective: Not interacting with questions.
Physical Exam
Vital Signs/Labs
Vital Signs
Temp Pulse Resp BP Pulse Ox
98.7 F 85 21 142/89 95
05/13/25 07:43 05/13/25 07:43 05/13/25 07:43 05/13/25 07:43 05/13/25 07:43
05/13/25 05:38
05/13/25 05:38
05/10/25
14:40
Nqb-P-Dkdjbxpftth Pept 1120
Physical Exam
Constitutional: No acute distress
EENT: Anicteric
Cardiovascular: Diastolic murmur absent and Rhythm/rate is irregular
Respiratory: Respiratory effort normal and Lungs clear to auscul.
GI: Soft and Distention absent
Data Reviewed
-
Date of Service: May 13, 2025
[2025-05-13 11:16] VITALS: BP 130/76
[2025-05-13 13:35] LABS: Syphilis/T. pallidum Ab Reflex Negative (Negative)
[2025-05-13] MEDS: LOPRESSOR 2.5 MG IV (13:38)
--- NOTE | 2025-05-13 14:12 | CM ---
CM consult received for discharge to hospice. Referral sent to Hospice for evaluation.
Plan: Hospice care, likely at home with family per Dr. Reddy.
[2025-05-13] MEDS: TYLENOL 650 MG PO ×2 (15:02→21:09)
[2025-05-13 15:22] VITALS: BP 151/100
--- NOTE | 2025-05-13 15:27 | PN.CDI ---
Addendum entered and electronically signed by Nathalia Reddy MD 05/13/25 15:53:
Paroxysmal atrial fibrillation -
Original Note:
CDI
- -
CDI:
Physician Documentation Request
Admit Date: 05/10/25 18:26
Dear Doctor Maureen,
Patient admitted with seizure.
05/13 Cardiology note, 'Permanent AFIB...asymptomatic, on Xarelto.'
05/13 PN, 'Paroxysmal A-fib...With A-fib with controlled heart rate- Continue Xarelto.'
Due to potentially conflicting documentation, please provide in your note the most likely type of atrial fibrillation being evaluated, treated and/or monitored::
Permanent atrial fibrillation - when a decision has been made to accept the presence of AF and there is no further attempt to restore or maintain sinus rhythm
Paroxysmal atrial fibrillation - terminates spontaneously or with intervention within 7 days of onset
Other - please specify
Use of terms such as suspected, likely, concern for, or probable (associated with a specific diagnosis that is being evaluated, monitored, or treated as if it exists) are acceptable and can be coded in the inpatient setting, when documented at the
time of discharge.
Thank you,
Ericka MILLAN,RN,CCDS
CDI Specialist
Available via tiger text
Please use your independent medical judgment in providing your response.
--- NOTE | 2025-05-13 15:41 | HOSPNOTE ---
Addendum entered by Corie Alfaro RN 05/13/25 15:50:
Meeting daughters tomorrow at 9am.
Original Note:
Left a message for Corina to please call me to discuss hospice. More information to follow.
[2025-05-13 17:16] VITALS: BP 139/96
[2025-05-13] MEDS: LOPRESSOR 25 MG PO (20:43)
[2025-05-13 23:00] VITALS: BP 153/90
[2025-05-14] MEDS: D5/0.9% SODIUM CHLORIDE 1000 IV (01:40)
[2025-05-14] MEDS: SYNTHROID PO (06:27)
[2025-05-14 07:17] LABS: Hematocrit 50.1 % (39.0-52.0); Hemoglobin 17.2 g/dL (13.0-18.0); Mean Corp Hgb Conc. 34.3 g/dL (33.0-37.0); Mean Corpuscular Volume 91.4 fL (80.0-94.0); Platelet Count 209 10^3/uL (130-400); Red Cell Dist. Width 12.2 % (11.5-14.5)
--- NOTE | 2025-05-14 07:35 | DOWNTIME ---
There was a [employer] Client Paper Finisher Downtime on 05/14/2025 from 0100 to 05/14/2025 at 0235. Downtime documentation of patient's care, including medication administrations, has been reconciled in the electronic record per guidelines. Refer to the
patient's paper chart under the miscellaneous tab to see printed paper medication records and downtime forms.
[2025-05-14] MEDS: KEPPRA 500 MG IV ×2 (08:40→20:11)
[2025-05-14] MEDS: LOPRESSOR 25 MG PO ×2 (08:40→20:11)
[2025-05-14] MEDS: XARELTO 20 MG PO (08:40)
[2025-05-14] MEDS: CYANOCOBALAMIN 1000 MCG IM (08:45)
--- NOTE | 2025-05-14 09:16 | W.PN.HOSP.TC ---
Today's Communication/Plan
-
plan to discharge in am with hospice care
Assessment / Plan
Assessment / Plan
Physical Exam
General: No Apparent respiratory Distress
HEENT: Normocephalic, Moist mucous membranes and Atraumatic
Respiratory: Clear, no wheezes.
Cardiac: S1/S2, tachycardia.
GI: Soft, Non Tender, Non Distended and Normal Bowel Sounds;
Rectal: no bleeding
Musculoskeletal: No Clubbing, No Cyanosis and No Edema
Skin: No Rash
Neuro: Awake, confused, answered simple commands.
Psych: Calm
# Goals of care discussed
Patient has advanced dementia, likely frontotemporal lobe dementia. Discussed with neurology. Continue with antiseizure medication.
I discussed with CRESCENCIO Arriaga and with other daughter Zachariah, they met with hospice nurse, plan to dc home with hospice service on 05/15.
Patient CODE STATUS changed to DNR/DNI
c/w comfort measures/ comfort feedings.
Appreciate hospice/ CM help
#suspected seizure
-UA negative
-EEG Ordered
-neurology consulted. Started on Keppra
-CT head No acute intracranial abnormality noted. No acute intracranial hemorrhage. No mass effect. Small chronic cerebellar infarcts.Central greater than cortical atrophy versus normal pressure hydrocephalus; recommend clinical correlation.
MRI brain reviewed with neurology, likely advanced frontotemporal dementia
# Vitamin B12 deficiency,
IM Vitamin B12.
# Proximal A-fib
- With A-fib with controlled heart rate
- Continue Xarelto
Stopped flecainide
started on low dose BB
# Hypothyroidism
- Levothyroxine continue
-f/u tsh with reflex
# Hyperlipidemia
Stopped statin with comfort goal.
# DVT prophylaxis
# CODE STATUS
DNR
Total time spent to see the patient, examine the patient, review data and lab result, discuss treatment plan with patient, daughters, hospice nurse, nursing staff around 57 minutes
Anticipated Discharge: Within 24 hours
Subjective/Interval History
-
Date of Service: May 14, 2025
No chest pain
No sob
Confused this morning
Objective Data
-
Labs:
Laboratory Results
05/14/25
06:22
WBC 12.4 H
Hgb 17.2
Hct 50.1
Plt Count 209
Vital Signs:
Vital Signs
Temp Pulse Resp BP Pulse Ox
97.8 F 83 18 153/90 96
05/13/25 23:00 05/13/25 23:00 05/13/25 23:00 05/13/25 23:00 05/13/25 23:00
I&O
05/13/25 05/14/25 05/15/25
06:59 06:59 06:59
Intake Total 480 / 480
Balance 480 / 480
--- NOTE | 2025-05-14 10:01 | CM ---
Met with patient daughter Diana & family
IMM explained & signed
tt from Brenda Alfaro - patient will go home tomorrow with Hospice
Patient to go to address: [facility] [place] [id number] (dtr home)
OOH DNR on chart for hospitaist signature
transport to be set up tomorrow at 11:00 - transportation forms on chart (1 step)
PLAN: Home with hospice on 05/15
transportation forms on chart for 11:00am transport
--- NOTE | 2025-05-14 10:31 | HOSPNOTE ---
The patient will be discharged tomorrow to the [facility] and will be admitted onto hospice services. Equipment was ordered and will be delivered today and transport is scheduled for 11am tomorrow. CM and Attending aware of plan. OOH DNR on
chart.
[2025-05-14] MEDS: TYLENOL 650 MG PO ×2 (10:44→20:19)
--- NOTE | 2025-05-14 13:53 | W.PN.CD ---
Today's Communication / Plan
-
I would send out on his usual cardiac regimen of rivaroxaban without rate control medications.
He can follow-up with cardiology on a routine basis. He does not need an extra visit because of this hospitalization.
If hospice care is pursued he can see cardiology only as needed.
Impression / Plan
-
Suspected seizure, now on med, some interaction with Xarelto but will continue (currently NPO)
Possible aspiration event, per hospitalist
Permanent AFIB: asymptomatic, on Xarelto. Rates as outpatient has not required rate control meds. Rates up from acute medical illness. PRN BB seems reasonable.
HTN, felodipine as an outpatient.
HLD, on statin
Dementia, chronic/progressive, neuro now involve
- Family in room tells and has reported that patient has not been taking his medications. CM involved for SNF at d/c.
- Workup noted with MRI. Reviewed with neurology and hospitalist. There are plans for hospice care
Subjective: Much more alert than yesterday. Denies chest pain palpitations or dyspnea. Able to take medications by mouth now
Physical Exam
Vital Signs/Labs
Vital Signs
Temp Pulse Resp BP Pulse Ox
97.8 F 83 18 153/90 96
05/13/25 23:00 05/13/25 23:00 05/13/25 23:00 05/13/25 23:00 05/13/25 23:00
05/14/25 06:22
05/13/25 05:38
05/10/25
14:40
Eac-M-Zwbchemsnxz Pept 1120
Physical Exam
Constitutional: No acute distress
EENT: Anicteric
Cardiovascular: Rhythm/rate is irregular
Respiratory: Respiratory effort normal and Lungs clear to auscul.
Neuro/Psych: Alert
Data Reviewed
-
Date of Service: May 14, 2025
[2025-05-14 22:57] VITALS: BP 164/95
[2025-05-15] MEDS: SYNTHROID PO (07:07)
[2025-05-15 07:52] VITALS: BP 150/90
[2025-05-15] MEDS: XARELTO 20 MG PO (08:47)
[2025-05-15] MEDS: LOPRESSOR 25 MG PO (08:47)
[2025-05-15] MEDS: CYANOCOBALAMIN 1000 MCG IM (08:47)
[2025-05-15] MEDS: KEPPRA 500 MG IV (08:47)
[2025-05-15 10:34] VITALS: BP 151/90
--- NOTE | 2025-05-15 10:42 | CM ---
Patient discharge today
Home, hospice
IMM explained & signed yesterday, in chart
OOH DNR signed on chart
PLAN: Home with hospice on 05/15
transportation forms on chart for 11:00am transport
--- NOTE | 2025-05-15 15:22 | W.DCSUMMARY ---
Discharge Summary
Discharge Data
Date of Admission: 05/10/25
Date of Discharge: 05/15/25
-
Pending Results: No
Hospital Course
84 years old male presented to the hospital with possible seizure activity. He had generalized shaking, upper extremity flexion and urinary incontinence. He was noted to be postictal on EMT arrival. Patient was evaluated by neurologist. He had
rapidly progressive dementia. 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 Patient was noted to
be in atrial fibrillation. Patient was started on Keppra. Neurology discussed with family and recommended comfort care/hospice. He was started on vitamin B12 replacement therapy. Patient was started on beta-jeramy for rate control. Family
noted that he was not compliant with his medications at home including Xarelto. Goal of care discussed with the family. They chose hospice care. Hospice nurse met with the family and they wanted home with hospice care. Option to continue Xarelto
was discussed with POA, daughter. Family decided to not take Xarelto. He was maintained on Keppra to avoid seizure and maintained on metoprolol to avoid tachycardia. Patient remained hemodynamically stable. He was started on comfort feedings and
was able to tolerate diet. Patient was discharged home with home hospice in a stable condition.
Discharge Plan
-
Patient Disposition: Home with Hospice
Discharge Diagnosis/Procedures: Advanced demntia
Seizure
A fib
Diet: As tolerated
Referrals:
Rayray Baker CRNP [Family Provider, Internal Medicine]
Prescriptions:
New
metoprolol tartrate 25 mg Tablet
25 mg PO BID Qty: 60 0RF
levetiracetam [Keppra] 500 mg tablet
500 mg PO BID Qty: 60 0RF
Continued
levothyroxine 50 mcg Tablet
50 mcg PO DAILY
Discontinued
rivaroxaban [Xarelto] 20 mg Tablet
20 mg PO DAILY
atorvastatin 10 mg Tablet
10 mg PO DAILY
felodipine 5 mg Tablet Extended Release 24 Hr
5 mg PO DAILY
Discharge Orders:
Discharge Patient (As Directed); Ordered 05/15/25
Ordered By: Nathalia Reddy
Discharge Date and Time
Discharge Date/Time: 05/15/25 11:49
Print Language: SYRIAC
--- NOTE | 2025-05-15 15:27 | W.PN.HOSP.TC ---
Today's Communication/Plan
-
dc
Assessment / Plan
Assessment / Plan
Physical Exam
General: No Apparent respiratory Distress
HEENT: Normocephalic, Moist mucous membranes and Atraumatic
Respiratory: Clear, no wheezes.
Cardiac: S1/S2, tachycardia.
GI: Soft, Non Tender, Non Distended and Normal Bowel Sounds;
Rectal: no bleeding
Musculoskeletal: No Clubbing, No Cyanosis and No Edema
Skin: No Rash
Neuro: Awake, confused, answered simple questions, followed simple commands.
Psych: Calm
# Goals of care discussed
Patient has advanced dementia, likely frontotemporal lobe dementia. Discussed with neurology. Continue with antiseizure medication.
I discussed with CRESCENCIO Arriaga and with other daughter Zachariah, they met with hospice nurse, plan to dc home with hospice service on 05/15.
Patient CODE STATUS changed to DNR/DNI
c/w comfort measures/ comfort feedings. d/w daughter Corina about Xarelto, pt was not taking it regularly, they decided to avoid Xarelto for now.
Appreciate hospice/ CM help
#suspected seizure
-UA negative
-EEG Ordered
-neurology consulted. Started on Keppra
-CT head No acute intracranial abnormality noted. No acute intracranial hemorrhage. No mass effect. Small chronic cerebellar infarcts.Central greater than cortical atrophy versus normal pressure hydrocephalus; recommend clinical correlation.
MRI brain reviewed with neurology, likely advanced frontotemporal dementia
# Vitamin B12 deficiency,
IM Vitamin B12.
# Proximal A-fib
- With A-fib with controlled heart rate
- Continue Xarelto
Stopped flecainide
started on low dose BB
# Hypothyroidism
- Levothyroxine continue
-f/u tsh with reflex
# Hyperlipidemia
Stopped statin with comfort goal.
# DVT prophylaxis
# CODE STATUS
DNR
Total discharge time spent to see the patient, examine the patient, review data and lab result, discuss discharge plan with patient, daughter CRESCENCIO, son in law, nursing staff around 67 minutes
Anticipated Discharge: Today
Subjective/Interval History
-
Date of Service: May 15, 2025
No seizures
No pain issues
No chest pain
heart rate is controlled
tolerating modified oral diet
Objective Data
-
Vital Signs:
Vital Signs
Temp Pulse Resp BP Pulse Ox
97.6 F 87 18 151/90 97
05/15/25 10:34 05/15/25 10:34 05/15/25 10:34 05/15/25 10:34 05/15/25 10:34
I&O
05/14/25 05/15/25 05/16/25
06:59 06:59 06:59
Intake Total 480 / 480 420 / 420
Balance 480 / 480 420 / 420
== END 2025-05-15 11:49 | disposition hospice, home (50) | DRG 56 ==
LOC: 3 WEST ACU 18:26
PROVIDERS: Internal Medicine; Physician Assistant; Registered Nurse; ADMITTING PHYSICIAN Internal Medicine; ATTENDING PHYSICIAN Internal Medicine; CONSULT PHYSICIAN Psychiatry & Neurology Clinical Neurophysiology; EMERGENCY PHYSICIAN Student in an Organized Health Care Education/Training Program; FAMILY PHYSICIAN Registered Nurse; OTHER PHYSICIAN Student in an Organized Health Care Education/Training Program
DX: G31.09 Other frontotemporal neurocognitive disorder (principal); G93.41 Metabolic encephalopathy; I48.21 Permanent atrial fibrillation; E87.20 Acidosis, unspecified; G91.2 (Idiopathic) normal pressure hydrocephalus; G31.83 Neurocognitive disorder with Lewy bodies; R56.9 Unspecified convulsions; F02.80 Dementia in other diseases classified elsewhere, unspecified severity, without behavioral disturbance, psychotic disturbance, mood disturbance, and anxiety; E03.9 Hypothyroidism, unspecified; R32 Unspecified urinary incontinence; I10 Essential (primary) hypertension; E78.00 Pure hypercholesterolemia, unspecified; M85.80 Other specified disorders of bone density and structure, unspecified site; F80.81 Childhood onset fluency disorder; I48.0 Paroxysmal atrial fibrillation; E53.8 Deficiency of other specified B group vitamins; G31.9 Degenerative disease of nervous system, unspecified; E86.0 Dehydration; Z66 Do not resuscitate; Z79.890 Hormone replacement therapy; Z79.01 Long term (current) use of anticoagulants; Z91.148 Patient's other noncompliance with medication regimen for other reason; Z86.73 Personal history of transient ischemic attack (TIA), and cerebral infarction without residual deficits; Z87.19 Personal history of other diseases of the digestive system
CPT/HCPCS: 70450; 70553; 71045; 80048; 80053; 81003; 81015; 82306; 82550; 82607; 82746; 83880; 84443; 85025; 85027; 86780; 92610; 93005; 95816; 96360; 97163; 97167; 97530; 97535; 99285; A9575